=== PATIENT | female | born 1975 | race Caucasian/White ===

== ENCOUNTER 2018-10-01 01:50 | Observation (INO) | payer MEDICAID ==
[~2018-10-01] VITALS: Ht 157.5 cm; Wt 73.5 kg
[2018-10-01] MEDS ORDERED: PREN-380 PO (03:41)
[2018-10-01 03:44] VITALS: BP 104/61
== END 2018-10-01 04:30 | disposition home or self-care (01) ==
LOC: MLD 01:50
PROVIDERS: ADMIT Obstetrics & Gynecology; ATTEND Obstetrics & Gynecology
DX: O26.892 Other specified pregnancy related conditions, second trimester (principal); M25.552 Pain in left hip; M25.551 Pain in right hip; Z3A.25 25 weeks gestation of pregnancy
CPT/HCPCS: G0378

== ENCOUNTER 2019-01-04 15:14 | Inpatient (IN) | payer MEDICAID ==
[~2019-01-04] VITALS: Ht 157.5 cm; Wt 79.4 kg
[2019-01-04] MEDS: LACTATED RINGERS 1,000 ML IV SCH (02:10)
[~2019-01-04 15:14] MED LIST: PREN-380 PO
[2019-01-04] MEDS ORDERED: OXYTOCIN 10 UNITS/ML VIAL IM SCH (16:25)
[2019-01-04] MEDS ORDERED: METHYLERGONOVINE 0.2 MG/ML AMP IM PRN (16:25)
[2019-01-04] MEDS ORDERED: PROMETHAZINE 25 MG/ML VIAL IVP PRN (16:25)
[2019-01-04] MEDS ORDERED: CARBOPROST 250 MCG/ML AMP IM PRN (16:25)
[2019-01-04 17:21] LABS: BASOPHILS % (AUTO) 0.4 % (0.0-2.0); EOSINOPHILS # (AUTO) 0.1 K/uL (0-0.4); EOSINOPHILS % (AUTO) 0.8 % (0.0-4.0); HEMATOCRIT 38.5 % (36-48); HEMOGLOBIN 12.9 g/dL (12.0-16.0); LYMPHOCYTES # (AUTO) 1.4 K/uL (2.5-16.5); LYMPHOCYTES % (AUTO) 22.4 % (20.5-51.1); MEAN CORPUSCULAR HEMOGLOBIN 32 pg (27-31); MEAN CORPUSCULAR HGB CONC 33 g/dL (33-37); MEAN CORPUSCULAR VOLUME 94.3 fL (80-94); MONOCYTES # (AUTO) 0.5 K/uL (0.8-1.0); NEUTROPHILS # (AUTO) 4.4 K/uL (1.8-7.7); NEUTROPHILS % (AUTO) 68.4 % (42.2-75.2); PLATELET COUNT (AUTO) 281 K/uL (140-450); RED BLOOD CELL COUNT(AUTO) 4.08 MIL/uL (4.20-5.40); RED CELL DISTRIBUTION WIDTH 13.5 % (11.6-13.7); WHITE BLOOD COUNT (AUTO) 6.4 K/uL (4.8-10.8)
[2019-01-04 17:21] LABS: APPEARANCE,URINE CLEAR (CLEAR); BILIRUBIN,URINE NEGATIVE (NEGATIVE); BLOOD, URINE TRACE-I (NEGATIVE); COLOR,URINE YELLOW (YELLOW); LEUKOCYTE ESTERASE ,URINE 1+ (NEGATIVE); NITRITE, URINE NEGATIVE (NEGATIVE); PH,URINE 6.5 (5.0-9.0); UGLUCOSE NEGATIVE (NEGATIVE)
[2019-01-04 17:47] LABS: ALBUMIN 2.7 g/dL (3.4-5.0); ANION GAP 14.3 (8-16); CARBON DIOXIDE 25.3 mmol/L (21-32); CREATININE 0.5 mg/dL (0.6-1.3); POTASSIUM 3.6 mmol/L (3.5-5.1); TOTAL BILIRUBIN 0.3 mg/dL (0.0-1.0)
[2019-01-04 18:10] LABS: RBC,URINE 0-5 /HPF (0-5); WBC,URINE 0-5 /HPF (0-5)
[2019-01-04 19:00] VITALS: BP 113/71
[2019-01-04] MEDS ORDERED: MISOPROSTOL 25 MCG TAB VG SCH (20:00)
[2019-01-05] MEDS ORDERED: OXYTOCIN 20 UNITS in LACTATED RINGERS 1,000 ML IV SCH ×2 (00:10→23:27)
[2019-01-05] MEDS ORDERED: OXYTOCIN 20 UNITS/LR PREMIX 1,000 ML IV ONE ×2 (02:22→22:36)
[2019-01-05] MEDS ORDERED: LIDOCAINE 1% 500 MG/50 ML VIAL ONE (08:26)
[2019-01-05] MEDS: LACTATED RINGERS 1,000 ML IV SCH ×2 (09:38→15:38)
[2019-01-05] MEDS ORDERED: MORPHINE SULFATE 10 MG/ML VIAL IVP PRN (12:05)
[2019-01-05] MEDS ORDERED: MORPHINE SULFATE 10 MG/ML VIAL ONE (12:10)
[2019-01-05] MEDS ORDERED: PROMETHAZINE 25 MG/ML VIAL ONE (12:10)
[2019-01-05] MEDS ORDERED: MORPHINE SULFATE 10 MG/ML VIAL SUBQ PRN (12:35)
[2019-01-05] MEDS ORDERED: TERBUTALINE 1 MG/ML VIAL SUBQ ONE (14:39)
[2019-01-05] MEDS ORDERED: BUPIVACAINE 0.125%/NS PREMIX 250 ML ONE (15:00)
[2019-01-05] MEDS ORDERED: ceFAZolin 1,000 MG VIAL ONE (20:25)
[2019-01-05] MEDS ORDERED: CITRIC ACID/SODIUM CITRATE 30 ML UDC ONE (20:26)
[2019-01-05] MEDS ORDERED: LIDOCAINE/EPI MPF 2%1:200000 10 ML VIAL INJ ONE (21:04)
[2019-01-05] MEDS ORDERED: MORPHINE PRES FREE 10 MG/10 ML AMP IV ONE (21:04)
[2019-01-05] MEDS ORDERED: SODIUM BICARBONATE 8.4% PFS 50 MEQ/50 ML SYR IVP ONE (21:05)
[2019-01-05] MEDS ORDERED: ePHEDrine 50 MG/ML VIAL IV ONE (21:16)
[2019-01-05] MEDS ORDERED: OXYTOCIN 10 UNITS/ML VIAL IM ONE (22:17)
[2019-01-05] MEDS ORDERED: diphenhydrAMINE 50 MG/ML VIAL ONE (22:36)
[2019-01-05] MEDS ORDERED: ONDANSETRON 4 MG/2 ML VIAL IVP PRN ×2 (23:05)
[2019-01-05] MEDS ORDERED: KETOROLAC 30 MG/ML VIAL IVP PRN ×2 (23:05→23:30)
[2019-01-05] MEDS ORDERED: diphenhydrAMINE 50 MG/ML VIAL IVP PRN (23:05)
[2019-01-05] MEDS ORDERED: NALBUPHINE 10 MG/ML AMP IVP PRN (23:05)
[2019-01-05] MEDS ORDERED: NALOXONE 0.4 MG/ML VIAL IVP PRN ×3 (23:05)
[2019-01-05] MEDS ORDERED: MEASLES, MUMPS, AND RUBELLA 1 VIAL SQVAC PRN (23:30)
[2019-01-05] MEDS ORDERED: HYDROmorphone 1 MG/ML AMP IVP PRN (23:30)
[2019-01-05] MEDS ORDERED: ONDANSETRON 4 MG/2 ML VIAL ONE (23:44)
--- NOTE | 2019-01-06 06:54 | NUR ---
PATIENT HAS BEEN SCREENED AND CATEGORIZED LOW NUTRITION RISK. PATIENT WILL BE SEEN WITHIN 7 DAYS OF ADMISSION. 01/11/19 SHEMAR ZAMBRANO MS, RDN
[2019-01-06 09:37] LABS: BASOPHILS % (AUTO) 0.3 % (0.0-2.0); EOSINOPHILS % (AUTO) 0.2 % (0.0-4.0); HEMATOCRIT 31.7 % (36-48); HEMOGLOBIN 10.9 g/dL (12.0-16.0); LYMPHOCYTES # (AUTO) 1.2 K/uL (2.5-16.5); LYMPHOCYTES % (AUTO) 12.7 % (20.5-51.1); MEAN CORPUSCULAR HEMOGLOBIN 32 pg (27-31); MEAN CORPUSCULAR HGB CONC 34 g/dL (33-37); MEAN CORPUSCULAR VOLUME 93.5 fL (80-94); MONOCYTES # (AUTO) 0.7 K/uL (0.8-1.0); MONOCYTES % (AUTO) 7.4 % (1.7-9.3); NEUTROPHILS # (AUTO) 7.8 K/uL (1.8-7.7); NEUTROPHILS % (AUTO) 79.4 % (42.2-75.2); PLATELET COUNT (AUTO) 217 K/uL (140-450); RED CELL DISTRIBUTION WIDTH 13.4 % (11.6-13.7); WHITE BLOOD COUNT (AUTO) 9.8 K/uL (4.8-10.8)
[2019-01-06] MEDS ORDERED: OXYTOCIN 10 UNITS/ML VIAL ONE (17:53)
[2019-01-06] MEDS ORDERED: OXYTOCIN 20 UNITS/LR PREMIX 1,000 ML IV ONE (17:54)
[2019-01-07] MEDS: SIMETHICONE 80 MG TAB.CHEW PO SCH ×3 (08:27→17:21)
[2019-01-07] MEDS: DOCUSATE SODIUM 100 MG GELCAP PO SCH (08:28)
[2019-01-07] MEDS: BISACODYL 5 MG TABEC PO SCH (08:28)
[2019-01-07] MEDS ORDERED: ACETAMINOPHEN 325 MG TAB PO PRN (09:00)
[2019-01-07] MEDS: IBUPROFEN 600 MG TAB PO PRN ×2 (09:56→20:13)
[2019-01-07] MEDS ORDERED: SODIUM PHOSPHATE 118 ML ENEM RC PRN (23:30)
[2019-01-08] MEDS: IBUPROFEN 600 MG TAB PO PRN ×3 (06:35→17:24)
[2019-01-08] MEDS: DOCUSATE SODIUM 100 MG GELCAP PO SCH (09:38)
[2019-01-08] MEDS: BISACODYL 5 MG TABEC PO SCH (09:38)
[2019-01-08] MEDS: SIMETHICONE 80 MG TAB.CHEW PO SCH ×3 (09:39→17:24)
[2019-01-08] MEDS ORDERED: BENZOCAINE/MENTHOL 1 LOZ MM PRN (19:15)
[2019-01-09] MEDS: IBUPROFEN 600 MG TAB PO PRN ×2 (00:42→08:29)
[2019-01-09] MEDS: BISACODYL 5 MG TABEC PO SCH (08:29)
[2019-01-09] MEDS: SIMETHICONE 80 MG TAB.CHEW PO SCH ×2 (08:29→14:18)
[2019-01-09] MEDS: DOCUSATE SODIUM 100 MG GELCAP PO SCH (08:29)
== END 2019-01-09 15:30 | disposition home or self-care (01) | DRG 540 ==
LOC: MLD 15:14 → MFCC 01-06 00:52
PROVIDERS: ADMIT Obstetrics & Gynecology; ATTEND Obstetrics & Gynecology
PROC: 10D00Z1 Extraction of Products of Conception, Low, Open Approach (ICD-10-PCS; principal; 2019-01-05 21:00)
DX: O62.2 Other uterine inertia (principal); R71.0 Precipitous drop in hematocrit; O69.81X0 Labor and delivery complicated by cord around neck, without compression, not applicable or unspecified; O69.82X0 Labor and delivery complicated by other cord entanglement, without compression, not applicable or unspecified; Z37.0 Single live birth; Z90.49 Acquired absence of other specified parts of digestive tract; Z3A.39 39 weeks gestation of pregnancy
CPT/HCPCS: 36415; 76805; 76815; 80053; 81001; 85025; 86592; 86886; 86900; 86901; 87086; J0690; J1200; J1885; J2001; J2270; J2405; J2550; J2590; J3105; J3490; J7120; Q0092

== ENCOUNTER 2023-02-28 11:55 | Emergency (ER) | payer MEDICAID ==
[~2023-02-28] VITALS: Ht 157.5 cm; Wt 71.8 kg
[2023-02-28 12:08] VITALS: BP 127/77; PULSE 57; RESP 20; TEMP 98.2; O2SAT 100
[2023-02-28 12:58] LABS: BASOPHILS % (AUTO) 0.6 % (0.0-2.0); EOSINOPHILS % (AUTO) 0.6 % (0.0-4.0); HEMATOCRIT 41.6 % (36-48); HEMOGLOBIN 14.6 g/dL (12.0-16.0); LYMPHOCYTES # (AUTO) 1.9 K/uL (2.5-16.5); LYMPHOCYTES % (AUTO) 34.2 % (20.5-51.1); MEAN CORPUSCULAR HEMOGLOBIN 32 pg (27-31); MEAN CORPUSCULAR HGB CONC 35 g/dL (33-37); MEAN CORPUSCULAR VOLUME 90.1 fL (80-94); MONOCYTES # (AUTO) 0.3 K/uL (0.8-1.0); MONOCYTES % (AUTO) 4.7 % (1.7-9.3); NEUTROPHILS # (AUTO) 3.2 K/uL (1.8-7.7); NEUTROPHILS % (AUTO) 59.9 % (42.2-75.2); PLATELET COUNT (AUTO) 342 K/uL (140-450); RED BLOOD CELL COUNT(AUTO) 4.62 MIL/uL (4.20-5.40); RED CELL DISTRIBUTION WIDTH 12.3 % (11.6-13.7); WHITE BLOOD COUNT (AUTO) 5.4 K/uL (4.8-10.8)
[2023-02-28 13:50] LABS: ANION GAP 12.9 (8-16); CALCIUM 8.9 mg/dL (8.5-10.1); CREATININE 0.7 mg/dL (0.6-1.3); POTASSIUM 3.9 mmol/L (3.5-5.1)
[2023-02-28 13:51] LABS: APPEARANCE,URINE CLEAR (CLEAR); BILIRUBIN,URINE NEGATIVE (NEGATIVE); BLOOD, URINE 3+ (NEGATIVE); COLOR,URINE YELLOW (YELLOW); LEUKOCYTE ESTERASE ,URINE NEGATIVE (NEGATIVE); NITRITE, URINE NEGATIVE (NEGATIVE); PH,URINE 6.5 (5.0-9.0); PROTEIN,URINE NEGATIVE (NEGATIVE); UGLUCOSE NEGATIVE (NEGATIVE); UROBILINOGEN,URINE 0.2 EU/dL (0.2 - 1)
[2023-02-28 13:52] LABS: ALBUMIN 3.9 g/dL (3.4-5.0); BILIRUBIN,DIRECT 0.1 mg/dL (0.0-0.3); TOTAL BILIRUBIN 0.5 mg/dL (0.0-1.0); TOTAL PROTEIN, SERUM 8.5 g/dL (6.4-8.2)
== END 2023-02-28 13:33 | disposition home or self-care (01) ==
LOC: MED 11:55
DX: N81.89 Other female genital prolapse (principal); Z79.899 Other long term (current) drug therapy
CPT/HCPCS: 36415; 80048; 80076; 81003; 81025; 85025; 99284